=== PATIENT | female | born 1955 | race Caucasian/White ===

== ENCOUNTER 2020-06-04 16:59 | Emergency (ER) | payer SELFPAY ==
[~2020-06-04] VITALS: Ht 157.5 cm; Wt 90.7 kg
[~2020-06-04 16:59] MED LIST: FLUOXETINE HCL20 M1 PO; TRAMADOL PO
== END 2020-06-04 18:06 | disposition home or self-care (01) ==
LOC: ER 17:55
DX: S39.011A Strain of muscle, fascia and tendon of abdomen, initial encounter (principal); Y93.39 Activity, other involving climbing, rappelling and jumping off; Y99.0 Civilian activity done for income or pay; I10 Essential (primary) hypertension
CPT/HCPCS: 99282